=== PATIENT | male | born 1965 | race Two or more races ===

== ENCOUNTER 2024-12-08 05:45 | Day surgery (SDC) | payer MEDICAID, SELFPAY ==
[2024-12-07 11:31] VITALS: BMI 36.0
[2024-12-08] VITALS (8 sets, daily range): BP systolic 151–189; BP diastolic 82–106; PULSE 77–91; RESP 13–20; TEMP 36.5–36.7; O2SAT 95–100; BMI 32.5
--- NOTE | 2024-12-08 05:30 | EKG_ITS ---
[facility] Test Date: 2024-12-08 Pat Name: MARIMAR CANDELARIA Department: Room: - Gender: Male [employer]: FUNMI : 1965 Requested By: Harpal Araiza Order Number: [id number] Reading MD: Harpal Araiza Measurements Intervals [place] Rate: 80 P: 30 HI: 221 QRS: -5 QRSD: 87 T: 71 QT: 410 QTc: 473 Interpretive Statements SINUS RHYTHM WITH FIRST DEGREE AV BLOCK VOLTAGE CRITERIA FOR LVH NONSPECIFIC T-WAVE ABNORMALITY Compared to ECG 11/08/2023 12:03:31 First degree AV block now present Left ventricular hypertrophy now present T-wave abnormality now present Myocardial infarct finding no longer present /store/S0/[id number]/ecg/[id number].pdf
[2024-12-08 06:15] LABS: Collection Type, Urine Clean Catch
[2024-12-08 06:24] LABS: Basophils % (Auto) 1 % (0-2.5); Eosinophils # (Auto) 0.2 Thou/mm3 (0.0-0.5); Eosinophils % (Auto) 3 % (0-10); Hematocrit 34.4 % (41.0-53.0); Hemoglobin 11.6 g/dL (13.5-16.0); Immature Granulocytes % (Auto) 0 % (0-0); Immature Granulocytes Auto 0.01 Thou/mm3 (0.00-0.00); Lymphocytes # (Auto) 1.3 Thou/mm3 (1.0-4.8); Lymphocytes % (Auto) 19 % (10-50); Mean Corpuscular HGB Conc 33.7 g/dl (31.0-37.0); Mean Corpuscular Hemoglobin 30.9 pg (25.0-35.0); Mean Corpuscular Volume 92 fL (80-100); Monocytes # (Auto) 0.7 Thou/mm3 (0.0-0.8); Monocytes % (Auto) 10 % (0-12); Neutrophils # (Auto) 4.7 Thou/mm3 (1.8-7.7); Neutrophils % (Auto) 67 % (37-80); Nucleated Red Blood Cell % 0 /100 WBC (0); Platelet Count 217 Thou/mm3 (140-440); RDW Standard Deviation 44.2 fL (35.1-43.9); Red Blood Count 3.76 Miln/mm3 (4.50-5.90)
[2024-12-08 06:30] LABS: Bilirubin,Urine Negative (Negative); Blood,Urine Trace (Negative); Clarity,Urine Clear (Clear/Hazy); Color,Urine Lt-Yellow (Lt Yel-Yel); Glucose, Urine Negative (Negative); Ketones,Urine Negative (Negative); Leukocyte Esterase,Urine Negative (Negative); Nitrite,Urine Negative (Negative); Protein,Urine 3+ (Neg - Trace); RBC,Urine 3 /hpf (0-3); Specific Gravity,Urine 1.016 (1.001-1.035); Squamous Epithelial Cell,Urine < 1 /hpf (0-5); Urobilinogen,Urine Negative mg/dL (0.0-1.0); WBC,Urine 18 /hpf (0-5)
[2024-12-08 06:39] LABS: Partial Thromboplastin Time 28.2 Seconds (22.0-36.0)
[2024-12-08 07:02] LABS: Alanine Aminotransferase < 7 U/L (10-49); Albumin, Serum 4.4 gm/dL (3.5-5.0); Albumin/Globulin Ratio 1.2 (1.2-2.2); Alkaline Phosphatase 67 U/L (46-116); Anion Gap 12 (7-16); Aspartate Amino Transferase < 8 U/L (0-34); BUN/Creatinine Ratio 6 Ratio (12-20); Bilirubin,Total 0.5 mg/dL (0.3-1.2); Blood Urea Nitrogen 46 mg/dL (9-23); Calcium 8.7 mg/dL (8.3-10.6); Calcium (Corrected) 8.7 mg/dL (8.5-10.1); Carbon Dioxide 31.2 mMol/L (20.0-31.0); Chloride 97 mMol/L (98-107); Creatinine (Component) 8.1 mg/dL (0.6-1.3); Estimated Creatinine Clearance 11.6 mL/min (>60); Globulin 3.6 gm/dL (2.3-3.5); Glucose 82 mg/dL (74-106); Osmolality,Calculated 290 (275-295); Sodium 140 mMol/L (136-145); eGFR 7 See Note
--- NOTE | 2024-12-08 09:38 | PD.SUROPNT ---
Date of Procedure 12/08/24 Pre Op Diagnosis Cholecystitis cholelithiasis end-stage renal disease due to diabetes Post Op Diagnosis Same. And cirrhosis of liver Procedure Difficult laparoscopic cholecystectomy due to hepatomegaly and cirrhosis of liver and adhesions. On December 08, 2024 Findings This patient had hepatomegaly and cirrhosis of liver alongside the cholecystitis cholelithiasis. He had significant amount of bleeding from the liver. Because of the cirrhosis and liver that extended the procedure time by about 58%. There were also adhesions to the to the small bowel and omentum. Procedure Description In the preop area the procedure was discussed with the patient including risks benefits and alternatives. The risks include possible laparotomy, bleeding, infection bile duct injury and bile leak. Patient may require ERCP for retained stone or a bile leak. The anesthesia risks are to be explained to the patient by the anesthesiologist. Informed consent was obtained. His risk of bleeding is higher because of end-stage renal disease. The risk of infection is higher because of his diabetes. The patient was positioned supine on the operating table and general anesthesia was administered in a satisfactory manner by the anesthesiologist. A timeout procedure was carried out. The patient is positioned in the reverse Trendelenburg position with the right side up. Orogastric tube is introduced into the stomach to decompress the stomach. Prophylactic antibiotics were given in timely manner. Antiembolism measures were taken. The abdomen chest and groin regions were prepped and draped in usual manner. A supraumbilical vertical incision was made and deepened through the layers of abdominal wall and open laparoscopic procedure is carried out. The balloon catheter was introduced and pneumoperitoneum is achieved. A 30? scope was used. Under direct vision right subxiphoid, midclavicular and anterior axillary line trochars were introduced. The gallbladder is then lifted up and a laparoscopic lysis of adhesions was carried out. The gallbladder is freed from the adhesions and the gayle hepatis is exposed. The triangle of Calot is gently dissected and the artery to cystic duct is divided with harmonic ultrasonic aaron. There is a significant amount of chronic scar tissue in the gayle hepatis that made the dissection and procedures much slower. This patient also has cirrhosis of the liver and large hepatomegaly that required an extended amount of dissection as well as control of bleeding. The posterior view of safety was achieved. The cystic artery and cystic duct are identified individually and they were ligated close to the gallbladder with hemoclips. There was an accessory cystic artery as well as multiple branches of the cystic artery proper. They were all individually controlled and divided. The cystic artery and the cystic duct are divided between the hemoclips close to the gallbladder. Care was taken to avoid tenting of the common duct. There is a significant length of cystic duct stump towards the common bile duct. The gallbladder is dissected and lifted from the liver bed using harmonic ultrasonic aaron. The gallbladder bed hemostasis is achieved. The gallbladder is retrieved out of the peritoneal cavity in a specimen bag. The balloon cannula is reintroduced and pneumoperitoneum is reestablished. The peritoneal cavity is thoroughly irrigated with sterile saline solution and hemostasis again ascertained. All the cannulas are removed under direct vision there is no bleeding from the cannula sites. The linea alba repair is carried out with the 0 Vicryl continuous suture. The subcutaneous tissues approximated by a 3-0 chromic and skin by 4-0 monocril subcuticular stitch. For the rest of the trocar site incisions are closed in 2 layers with a 3-0 chromic and 4-0 monocril subcuticular stitch. Steri-Strips are applied. Sterile dressings are applied. Complications none. Patient is transferred to the recovery room in a satisfactory condition. Anesthesia GETA Drains None. Implants None. Pathology / specimen Other (Gallbladder with contents) Estimated Blood Loss 25 Condition Stable Disposition PACU Surgeon Harpal Araiza MD Surgical Staff Operation Date: 12/08/24 07:30 Case Staff Anesthesiologist: Marcin Chaudhari RNfret saw operator: Rea Vanegas mri special procedures technologist
--- NOTE | 2024-12-08 09:42 | SUR.PHASEI ---
pt arrived to PACU via gurney with oral airway present, breathing unlabored, dressing to abdomen clean, dry, and intact, report from Caitlin TODD and Dr Chaudhari
[2024-12-08] MEDS: fentaNYL CIT INJ 50 mCg/ML AMP 2ML IVP ×2 (09:53→10:23)
--- NOTE | 2024-12-08 10:05 | SUR.PHASEI ---
pt able to tolerate oral fluids without difficulty swallowing or n/v
[2024-12-08] MEDS: ONDANSETRON INJ 2 MG/ML INJ 2 ML 4 MG IVP (10:55)
--- NOTE | 2024-12-08 11:00 | SUR.PHASEII ---
pt awake, alert, able to follow commands, breathing unlabored, dressing to abdomen clean, dry, and intact, discharge instructions given with son present using telephone diplomatic interpreter Sylvia ID#[id number] questions answered, pt able to dress self and ambulate to wheelchair with steady gait, pt discharged via wheelchair with all belongings and copies of discharge paperwork.
--- NOTE | 2024-12-12 14:32 | PD.ANESPROG ---
Documentation for date of: 12/12/24 POST ANESTHESIA NOTE: Patient had GETA for lap cholecystectomy on 12/08/24. I just called and spoke with him on the phone and he denied any problems from anesthesia. He reported having pain at umbilicus and seeing blood in stool. He endorsed that he had follow up with the surgeon and that he informed the surgeon about this. He asked if it is normal to see blood in stool and I educated him that it's usually not normal to see blood in stool and if he has concern or questions, he should follow up with the surgeon and he agreed and had no further questions for me. Marcin Chaudhari MD Anesthesia Progress Note Progress Note Most recent Vital Signs: Last Vital Signs Temp 97.7 F 12/08/24 10:42 Pulse 82 12/08/24 10:42 Resp 16 12/08/24 10:42 BP 161/96 H 12/08/24 10:42 Pulse Ox 97 12/08/24 10:42 O2 Flow Rate 2 12/08/24 09:57
== END 2024-12-08 11:00 | disposition home or self-care (01) ==
PROVIDERS: PCP Physician Assistant; Referring Provider Specialist; Visit Provider Specialist
PROC: 0FT44ZZ Resection of Gallbladder, Percutaneous Endoscopic Approach (ICD-10-PCS; CPT 47562; principal; 2024-12-08 07:30)
DX: K80.10 Calculus of gallbladder with chronic cholecystitis without obstruction (principal); E11.22 Type 2 diabetes mellitus with diabetic chronic kidney disease; K66.0 Peritoneal adhesions (postprocedural) (postinfection); N18.6 End stage renal disease; Z99.2 Dependence on renal dialysis; Z01.810 Encounter for preprocedural cardiovascular examination
CPT/HCPCS: 47562; 36415; 80053; 81001; 85025; 85730; 93005; A4217; A4649; J0131; J0360; J0694; J1100; J2371; J2405; J2704; J3010; J3490; A9270; J1805